=== PATIENT | female | born 1945 | race Caucasian/White ===

== ENCOUNTER 2017-08-03 12:49 | Outpatient (CLI) | payer MEDICARE | END 2017-08-03 12:50 | disposition home or self-care (01) | LOC: BICMAMMO 12:49 | PROVIDERS: ATTEND Family Medicine | DX: Z12.31 Encounter for screening mammogram for malignant neoplasm of breast (principal); M81.0 Age-related osteoporosis without current pathological fracture; M47.896 Other spondylosis, lumbar region; Z78.0 Asymptomatic menopausal state; Z79.01 Long term (current) use of anticoagulants | CPT/HCPCS: 77063; 77067; 77080 ==

== ENCOUNTER 2018-08-08 19:32 | Emergency (ER) | payer MEDICARE ==
[2018-08-08 20:35] LABS: #Basophils 0.1 thou/uL (0.0-0.2); #Eosinphils 0.1 thou/uL (0.0-0.7); #Lymphocytes 1.4 thou/uL (1.20-3.40); #Monocytes 0.6 thou/uL (0.11-0.59); #Neutrophils 6.5 thou/uL (1.40-6.50); %Basophils 0.9 % (0.0-1.0); %Eosinophils 1.3 % (0.0-10.0); %Lymphocytes 16.4 % (21.0-51.0); %Monocytes 7.2 % (0.0-10.0); %Neutrophils 74.2 % (42.0-75.0); Hemoglobin 10.2 g/dL (12.0-16.0); Mean Corpuscular HGB CONC 33.2 g/dL (32.0-36.0); Mean Corpuscular Hemoglobin 29.7 pg (27.0-31.0); Mean Corpuscular Volume 89.5 fL (78.0-98.0); Mean Platelet Volume 6.6 fL (7.4-10.4); Platelet Count 368 thou/uL (130-400); RBC Distribution Width 12.5 % (11.5-14.5); Red Blood Cell (RBC) Count 3.45 mill/uL (4.20-5.40); White Blood Cell (WBC) Count 8.8 thou/uL (4.8-10.8)
[2018-08-08 20:49] LABS: ALT (SGPT) 53 U/L (8-55); AST (SGOT) 57 U/L (5-34); Albumin 3.6 g/dL (3.4-4.8); Alkaline Phosphatase 136 U/L (40-150); Anion Gap 17 mmol/L (10-20); BUN (Urea Nitrogen) 39 mg/dL (9.8-20.1); Bilirubin, Total 0.4 mg/dL (0.2-1.2); CK (CPK) 970 U/L (29-168); Calc. Creatinine Clearance 0 mL/min (70-130); Calcium 9.8 mg/dL (7.8-10.44); Carbon Dioxide 19 mmol/L (23-31); Chloride 103 mmol/L (98-107); Estimated GFR-MDRD 18; Globulin 3.5 g/dL (2.4-3.5); Glucose 138 mg/dL (83-110); Lipase 41 U/L (8-78); Potassium 4.4 mmol/L (3.5-5.1); Protein, Total 7.1 g/dL (6.0-8.3); Sodium 135 mmol/L (136-145)
[2018-08-08 21:03] LABS: PTT 72.5 SEC (22.9-36.1)
[2018-08-08 21:04] LABS: Prothrombin Time 43.3 SEC (12.0-14.7)
[2018-08-08 21:06] LABS: INR-International Normal Ratio 4.6
--- NOTE | 2018-08-08 21:12 | RAD ---
CHEST TWO VIEWS: 08/08/2018 HISTORY: Cough. COMPARISON: 08/05/2018 TECHNIQUE: Frontal and lateral views of the chest are obtained. FINDINGS: Two views of the chest demonstrate patchy areas of right hilar and central right lung opacities to be less prominent, compatible with resolving right-sided pneumonia. Some residual opacity remains; how ever, less pronounced than on the previous exam. The left lung is well aerated. IMPRESSION: Improving central right lung opacities. POS: [facility]
[2018-08-08 22:07] LABS: Bilirubin Negative (Negative); Blood, Urine Trace (Negative); Clarity Cloudy (Clear); Glucose, Urine (Dipstick) Negative (Negative); Leukocyte Negative (Negative); Nitrite Negative (Negative); Protein, Urine (Dipstick) Trace mg/dL (Neg-Trace); RBC/HPF 0-3 HPF (0-3); Urobilinogen 0.2 mg/dL (0.2-1.0); WBC/HPF 0-3 HPF (0-3); pH, Urine 5.5 (5.0-9.0)
[2018-08-08 22:08] LABS: Bacteria/HPF 1+ HPF (None Seen); Hyaline Casts/LPF NONE SEEN LPF (0-3 Hyaline); Transitional Epithelial 0-3 HPF (0-3)
== END 2018-08-09 00:40 | disposition home or self-care (01) ==
LOC: SCSER 19:32
DX: E86.0 Dehydration (principal); J18.9 Pneumonia, unspecified organism; M10.9 Gout, unspecified; I10 Essential (primary) hypertension; Z79.01 Long term (current) use of anticoagulants; Z79.899 Other long term (current) drug therapy
CPT/HCPCS: 36415; 71046; 80053; 81003; 81015; 82550; 83605; 83690; 84484; 85025; 85610; 85730; 93005; 96360; 96361